=== PATIENT | male | born 1930 | race African-American/Black ===

== ENCOUNTER → 2016-07-01 | Outpatient (CLI) | payer MEDICARE, OTHER ==
[~2016-07-01] MED LIST: ALBU90AE IH; CALC-4 PO; FLUT1DIS3 IH; FOLI-43 PO; METH2.5T PO; MULT-1008 PO; PRAV40TA PO; SITA100T6 PO; TOLT4CAP PO
== END | disposition home or self-care (01) ==
LOC: RAD 13:34
PROVIDERS: ATTEND Specialist
DX: M19.021 Primary osteoarthritis, right elbow (principal); M70.31 Other bursitis of elbow, right elbow
CPT/HCPCS: 73080

== ENCOUNTER 2016-10-16 11:01 | Inpatient (IN) | payer MEDICARE, OTHER ==
[~2016-10-16] VITALS: Ht 188 cm; Wt 82.6 kg
[~2016-10-16 11:01] MED LIST changes: +SITA100T11 PO; -SITA100T6 PO
[2016-10-16] MEDS ORDERED: SODIUM CHLORIDE 0.9% 1,000 ML IV ONE (12:58)
[2016-10-16] MEDS ORDERED: KETOROLAC 30MG/ML VIAL IV ONE (13:00)
[2016-10-16] MEDS ORDERED: HYDROCODONE/ACETAMINOPHEN 5/325MG TABLET PO PRN (13:15)
[2016-10-16 13:29] LABS: BASOPHILS % 0.7 % (0.0-2.0); EOSINOPHILS % 0.7 % (0.0-5.0); HEMATOCRIT. 41.3 % (42.0-52.0); HEMOGLOBIN. 13.6 g/dL (14.0-18.0); LYMPHOCYTES % 8.8 % (20.0-50.0); MEAN CORPUSCULAR HEMOGLOBIN 31.1 pg (28.0-32.0); MEAN CORPUSCULAR VOLUME 94.4 fL (80.0-94.0); MEAN PLATELET VOLUME 7.5 fl (7.4-10.4); MONOCYTES % 7.2 % (2.0-8.0); NEUTROPHILS % 82.6 % (40.0-76.0); PLATELET 171 x1000/uL (130-400); RED BLOOD CELL COUNT 4.37 mill/uL (4.7-6.1); RED CELL DISTRIBUTION WIDTH 14.8 % (11.6-14.6)
[2016-10-16 13:34] LABS: INR 1.1; PROTHROMBIN TIME 11.5 sec (9.4-11.6)
[2016-10-16 13:43] LABS: CARBON DIOXIDE 27 mEq/L (21-32); CHLORIDE 106 mEq/L (98-107); TROPONIN I 0.07 ng/mL (0.00-0.04)
[2016-10-16] MEDS ORDERED: ACETAMINOPHEN 325MG TABLET PO PRN (13:45)
[2016-10-16] MEDS ORDERED: IPRATROPIUM/ALBUTEROL 0.5-3(2.5)MG/3ML NEB INH PRN (13:45)
[2016-10-16] MEDS ORDERED: ONDANSETRON HCL 4MG/2ML VIAL IV PRN (13:45)
[2016-10-16] MEDS ORDERED: DEXTROSE 50% WATER 50ML SYRINGE IV PRN (13:45)
[2016-10-16] MEDS ORDERED: DOCUSATE SODIUM 100MG CAPSULE PO PRN (13:45)
[2016-10-16] MEDS ORDERED: ASPIRIN 81MG EC TABLET PO NR (16:00)
[2016-10-16] MEDS ORDERED: METHOTREXATE SODIUM 2 . 5MG TABLET PO SCH ×2 (16:00→22:00)
[2016-10-16] MEDS: INSULIN LISPRO 100 UNITS/ML SUBCUT SCH ×2 (17:51→21:00)
[2016-10-16 18:02] VITALS: BP 118/66
[2016-10-16] MEDS: ENOXAPARIN 40MG/0.4ML SYR SUBCUT SCH (18:48)
[2016-10-16 20:00] VITALS: BP 116/56
[2016-10-16] MEDS: BLOOD SUGAR DIAGNOSTIC STRIP TEST SCH (21:00)
[2016-10-16] MEDS: ATORVASTATIN CALCIUM 20MG TABLET PO SCH (21:00)
[2016-10-16] MEDS: AMLODIPINE 5MG TABLET PO SCH (21:00)
[2016-10-16] MEDS: METOPROLOL TARTRATE 25MG TABLET PO SCH (21:00)
[2016-10-17] VITALS: BP 152/85
[2016-10-17 04:00] VITALS: BP 112/59
[2016-10-17] MEDS: OMEPRAZOLE 20MG CAPSULE EXTENDED RELEASE PO SCH (06:27)
[2016-10-17] MEDS: BLOOD SUGAR DIAGNOSTIC STRIP TEST SCH ×4 (06:36→21:09)
[2016-10-17] MEDS: INSULIN LISPRO 100 UNITS/ML SUBCUT SCH ×4 (06:37→21:00)
[2016-10-17 07:22] LABS: BASOPHILS % 0.6 % (0.0-2.0); EOSINOPHILS % 1.5 % (0.0-5.0); HEMATOCRIT. 40.8 % (42.0-52.0); HEMOGLOBIN. 13.5 g/dL (14.0-18.0); LYMPHOCYTES % 20.4 % (20.0-50.0); MEAN CORPUSCULAR HEMOGLOBIN 31.2 pg (28.0-32.0); MEAN CORPUSCULAR VOLUME 94.4 fL (80.0-94.0); MEAN PLATELET VOLUME 8.5 fl (7.4-10.4); MONOCYTES % 9.9 % (2.0-8.0); NEUTROPHILS % 67.6 % (40.0-76.0); PLATELET 167 x1000/uL (130-400); RED BLOOD CELL COUNT 4.33 mill/uL (4.7-6.1); RED CELL DISTRIBUTION WIDTH 14.6 % (11.6-14.6)
[2016-10-17 07:59] LABS: CARBON DIOXIDE 28 mEq/L (21-32); CHLORIDE 108 mEq/L (98-107); HDL CHOLESTEROL 62 mg/dL (40-59); LDL CHOLESTEROL 104 mg/dL (5-100); TROPONIN I 0.11 ng/mL (0.00-0.04)
[2016-10-17 08:00] VITALS: BP 122/52
[2016-10-17] MEDS: AMLODIPINE 5MG TABLET PO SCH ×2 (09:00→21:00)
[2016-10-17] MEDS: METOPROLOL TARTRATE 25MG TABLET PO SCH (09:00)
[2016-10-17] MEDS ORDERED: CLONIDINE 0.1MG TABLET PO PRN (09:22)
[2016-10-17] MEDS: FOLIC ACID 1MG TABLET PO SCH (09:57)
[2016-10-17 12:00] VITALS: BP 134/63
[2016-10-17 16:00] VITALS: BP 102/58
[2016-10-17] MEDS: ENOXAPARIN 40MG/0.4ML SYR SUBCUT SCH (17:17)
[2016-10-17 20:00] VITALS: BP 127/52
[2016-10-17] MEDS: ATORVASTATIN CALCIUM 20MG TABLET PO SCH ×2 (21:00→23:03)
[2016-10-18] VITALS: BP 135/57
[2016-10-18 04:00] VITALS: BP 154/83
[2016-10-18] MEDS: INSULIN LISPRO 100 UNITS/ML SUBCUT SCH (07:10)
[2016-10-18] MEDS: BLOOD SUGAR DIAGNOSTIC STRIP TEST SCH ×2 (07:20→11:46)
[2016-10-18 07:47] LABS: BASOPHILS % 0.8 % (0.0-2.0); EOSINOPHILS % 3.9 % (0.0-5.0); HEMATOCRIT. 40.8 % (42.0-52.0); HEMOGLOBIN. 13.3 g/dL (14.0-18.0); LYMPHOCYTES % 22.8 % (20.0-50.0); MEAN CORPUSCULAR HEMOGLOBIN 30.8 pg (28.0-32.0); MEAN CORPUSCULAR VOLUME 94.1 fL (80.0-94.0); MEAN PLATELET VOLUME 8.1 fl (7.4-10.4); MONOCYTES % 11.4 % (2.0-8.0); NEUTROPHILS % 61.1 % (40.0-76.0); PLATELET 177 x1000/uL (130-400); RED BLOOD CELL COUNT 4.34 mill/uL (4.7-6.1); RED CELL DISTRIBUTION WIDTH 14.5 % (11.6-14.6)
[2016-10-18 08:18] LABS: CARBON DIOXIDE 31 mEq/L (21-32); CHLORIDE 105 mEq/L (98-107)
[2016-10-18 08:21] VITALS: BP 136/74
[2016-10-18] MEDS: OMEPRAZOLE 20MG CAPSULE EXTENDED RELEASE PO SCH (08:44)
[2016-10-18] MEDS: AMLODIPINE 5MG TABLET PO SCH (08:45)
[2016-10-18] MEDS: FOLIC ACID 1MG TABLET PO SCH (08:45)
[2016-10-18 12:20] VITALS: BP 138/78
== END 2016-10-18 14:30 | disposition home or self-care (01) | DRG 309 ==
LOC: ER 11:01 → SUPCPDRO 13:20 → 6WST 15:38 → ENRESERV 16:34
PROVIDERS: ADMIT Family Medicine Adult Medicine; ATTEND Family Medicine Adult Medicine
DX: I44.0 Atrioventricular block, first degree (principal); E44.0 Moderate protein-calorie malnutrition; E11.22 Type 2 diabetes mellitus with diabetic chronic kidney disease; I13.10 Hypertensive heart and chronic kidney disease without heart failure, with stage 1 through stage 4 chronic kidney disease, or unspecified chronic kidney disease; E11.51 Type 2 diabetes mellitus with diabetic peripheral angiopathy without gangrene; R07.89 Other chest pain; I25.10 Atherosclerotic heart disease of native coronary artery without angina pectoris; I27.2 Other secondary pulmonary hypertension; J44.9 Chronic obstructive pulmonary disease, unspecified; E78.00 Pure hypercholesterolemia, unspecified; M06.9 Rheumatoid arthritis, unspecified; E78.5 Hyperlipidemia, unspecified; I34.0 Nonrheumatic mitral (valve) insufficiency; L30.9 Dermatitis, unspecified; N18.9 Chronic kidney disease, unspecified; N40.0 Benign prostatic hyperplasia without lower urinary tract symptoms; Z95.1 Presence of aortocoronary bypass graft; Z95.5 Presence of coronary angioplasty implant and graft; Z87.891 Personal history of nicotine dependence
CPT/HCPCS: 36415; 71010; 80048; 80053; 80061; 82962; 83036; 83735; 84443; 84484; 85025; 85610; 87086; 93005; 93306; 93970; 96361; 96374; 99285; J1650; J1815; J1885; J7030; J8610